=== PATIENT | female | born 1965 | race Caucasian/White ===

== ENCOUNTER 2023-12-04 14:24 | Outpatient (OUT) | payer OTHER, SELFPAY ==
--- NOTE | 2023-12-04 14:30 | ECG_ITS ---
[facility] Test Date: 2023-12-04 Pat Name: KENIA AGUAYO Department: Room: - Gender: Female Job Forwarder: : 1965 Requested By: KRISTIE TAM Order Number: [id number] Reading MD: CHERYL CASTILLO Measurements Intervals Davidson Rate: 86 P: 44 ND: 120 QRS: 18 QRSD: 87 T: 32 QT: 329 QTc: 394 Interpretive Statements SINUS RHYTHM Compared to ECG 04/20/2020 11:05:50 No significant changes Electronically Signed On 12-06-2023 5:31:50 EST by CHERYL CASTILLO
[2023-12-04 16:00] LABS: Anion Gap 9.2; BUN Creatinine Ratio 18.9; Calcium 9.8 mg/dL (8.5-10.1); Chloride 99 mmol/L (98-107); Estimated GFR (African America >60 (>=60); Estimated GFR (Non-African Ame >60 (>=60); Glucose 179 mg/dL (74-106); Potassium 5.2 mmol/L (3.5-5.1); Sodium 133 mmol/L (136-145)
== END 2023-12-04 14:25 | disposition home or self-care (01) ==
LOC: PST 14:25
PROVIDERS: Family Provider Otolaryngology; Visit Provider Surgery
DX: Z01.810 Encounter for preprocedural cardiovascular examination (principal); Z01.812 Encounter for preprocedural laboratory examination; L72.0 Epidermal cyst
CPT/HCPCS: 36415; 80048; 93005

== ENCOUNTER 2023-12-19 06:20 | Day surgery (SDC) | payer OTHER, SELFPAY ==
[2023-12-04 14:57] VITALS: BP 145/82; PULSE 94; RESP 18; TEMP 36.3; O2SAT 96; BMI 27.2
[2023-12-19] VITALS (10 sets, daily range): BP systolic 106–149; BP diastolic 57–83; PULSE 84–96; RESP 12–20; TEMP 36.1–36.4; O2SAT 96–100; BMI 28.1
--- NOTE | 2023-12-19 07:14 | PM.GSPRC ---
Date of procedure: 12/19/23 Indications for Procedure: inclusion cyst right mandible inclusion cyst lower mid back recurrent Pre-op diagnosis: inclusion cyst right mandible; inclusion cyst lower mid back recurrent Post-op diagnosis: same as pre-op Procedure: 1.excision inclusion cyst right mandible 3.1 cm 2.Intermediate closure right mandible 3.1 cm 3.excision recurrent inclusion cyst lower back 4.5centimeters #4. 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 Right mandible was prepped and draped usual sterile fashion.time out was taken and preoperative antibiotics were given. One percent Xylocaine with epinephrine 8 mL used anesthetize area locally and inclusion cyst was excised in excision size was within 3.1. Specimen was submitted to pathology and the wound was closed intermediately with 4-0 Monocryl suture in subcuticular fashion and Steri-Strips are placed on the wound. Patient was then turned over in the supine position and the area on the lower back was prepped and draped usual sterile fashion. One percent Xylocaine with epinephrine 25 mL was used anesthetize area locally and wide elliptical incision was made over the area which and been premarked and excision size was 4.5 cm. The specimen was submitted to pathology. Hemostasis was maintained. The wound was closed with 4-0 Vicryl suture in interrupted fashion subcutaneously and the skin was closed with 3-0 nylon suture in interrupted fashion. Dressing was placed. Sponge and instrument counts were correct. Consumer Relations Complaint Clerk: Ada Campos, MS3 Estimated blood loss (mL): 2 Specimens: inclusion cyst right mandible Inclusion cyst with fibrosis mid back Complications: No Condition: stable Disposition: PACU
[2023-12-19] MEDS: CEFAZOLIN SODIUM/DEXTROSE,ISO 2 GM/50 ML PIGGYBACK IV (07:19)
[2023-12-19] MEDS: LACTATED RINGER'S SOLUTION 1,000 ML 50 ML IV (07:19)
[2023-12-19] MEDS: LIDOCAINE HCL 1%-EPINEPHRINE 1:100,000 20 ML MDV 26 ML INJ (08:19)
== END 2023-12-19 09:40 | disposition home or self-care (01) ==
LOC: SURGOUT 15:18
PROVIDERS: Family Provider Otolaryngology; Visit Provider Surgery
PROC: (CPT 300; principal; 2023-12-19 07:30)
DX: L72.0 Epidermal cyst (principal); E11.9 Type 2 diabetes mellitus without complications; I10 Essential (primary) hypertension; Z79.84 Long term (current) use of oral hypoglycemic drugs
CPT/HCPCS: 11406; 11444; 12032; 12052; 36415; 88304; J2704